=== PATIENT | male | born 1995 | race Caucasian/White ===

== ENCOUNTER 2019-07-05 23:52 | Emergency (ER) | payer SELFPAY ==
[~2019-07-05] VITALS: Ht 172.7 cm; Wt 70.5 kg
--- NOTE | 2019-07-06 00:41 | PHYS DOC ---
General Adult EDM: Chief Complaint: SEXUALLY TRANSMITTED DISEASE HPI: HPI: Patient is a 24 year old male who presents with complaint of burning with urination. Patient presents wanting to be tested for STD's. He denies any penile discharge. Patient denies any abdominal pain, nausea or vomiting. He denies any testicular pain or swelling.[] Review of Systems: Review of Systems: Constitutional: Denies fever or chills. [] Respiratory: Denies cough or shortness of breath. [] Cardiovascular: Denies chest pain or edema. [] GI: Denies abdominal pain, nausea, vomiting, bloody stools or diarrhea. [] : Complains of dysuria. [] Integument: Denies rash. [] Neurologic: Denies headache, focal weakness or sensory changes. [] Heart Score: Risk Factors: Risk Factors: DM, Current or recent (<one month) smoker, HTN, HLP, family history of CAD, obesity. Risk Scores: Score 0 - 3: 2.5% MACE over next 6 weeks - Discharge Home Score 4 - 6: 20.3% MACE over next 6 weeks - Admit for Clinical Observation Score 7 - 10: 72.7% MACE over next 6 weeks - Early Invasive Strategies Physical Exam: PE: Constitutional: Well developed, well nourished, no acute distress, non-toxic appearance. [] Cardiovascular:Heart rate regular rhythm, no murmur [] Lungs & Thorax: Bilateral breath sounds clear to auscultation [] Abdomen: Bowel sounds normal, soft, no tenderness. [] Skin: Warm, dry, no erythema, no rash. [] EKG: EKG: [] Radiology/Procedures: Radiology/Procedures: [] Course & Med Decision Making: Course & Med Decision Making Pertinent Labs and Imaging studies reviewed. (See chart for details) [] Dragon Disclaimer: Dragon Disclaimer: This electronic medical record was generated, in whole or in part, using a voice recognition dictation system. Departure Departure Impression: Primary Impression: Dysuria Disposition: 07 AGAINST MEDICAL ADVICE (a medical screening examination was performed on this patient and patient elected to follow up as an outpatient in lieu of paying $150 co-pay.) Referrals: NO PCP (PCP) CASEY SCHERER Jr. DO Jul 06, 2019 00:41
[2019-07-06 00:43] VITALS: BP 129/70
== END 2019-07-06 00:54 | disposition left against medical advice (07) ==
LOC: ER 23:52
DX: R30.0 Dysuria (principal)
CPT/HCPCS: 99281